=== PATIENT | female | born 1980 | race American Indian/Alaskan Native ===

== ENCOUNTER 2017-12-31 19:32 | Emergency (ER) | payer SELFPAY ==
[2017-12-31] MEDS ORDERED: XANAX PO ONE (22:15)
--- NOTE | 2017-12-31 22:30 | Emergency Department Report ---
HPI - General Chief Complaint: Psych Time Seen by Provider: 12/31/17 22:08 - HPI HPI: 37-year-old female presents to the emergency department with complaint of 1.5 weeks of some generalized weakness, fatigue, anxiety. Patient says that she will get some intermittent chest pains but does not currently have any. She denies any shortness of breath, nausea, vomiting or diaphoresis. Patient has a history of bipolar disorder and schizophrenia but is not on any medication because "I can't afford it." She does admit to some auditory and visual hallucinations but she denies any suicidal or homicidal ideations. No recent travel or sick contacts at home. She has not taken anything for her symptoms prior to presentation. ED Past Medical Hx - Past Medical History Previous Medical History?: Yes Hx Hypertension: Yes Hx Psychiatric Treatment: Yes (schizophrenia, bipolar) - Surgical History Past Surgical History?: No - Social History Smoking Status: Never Smoker Substance Use Type: None ED Review of Systems ROS: Stated complaint: ANXIETY/WEAKNESS Other details as noted in HPI Comment: All other systems reviewed and negative Constitutional: weakness, other (fatigue). denies: chills, fever Eyes: denies: eye pain, eye discharge, vision change ENT: denies: ear pain, throat pain Respiratory: denies: cough, shortness of breath, wheezing Cardiovascular: chest pain (intermittent but none currently). denies: edema Gastrointestinal: denies: abdominal pain, nausea, diarrhea Genitourinary: denies: urgency, dysuria, discharge Musculoskeletal: denies: back pain, joint swelling, arthralgia Skin: denies: rash, lesions Neurological: denies: headache, weakness, paresthesias Psychiatric: auditory hallucinations, visual hallucinations. denies: homicidal thoughts, suicidal thoughts Physical Exam - Physical Exam Vital Signs: Vital Signs 12/31/17 20:06 Temperature 99.4 F Pulse Rate 115 H Respiratory 18 Rate Blood Pressure 133/76 O2 Sat by Pulse 99 Oximetry Physical Exam: GENERAL: The patient is well-developed well-nourished. HENT: Normocephalic. Atraumatic. Patient has moist mucous membranes. EYES: Extraocular motions are intact. Pupils equal reactive to light bilaterally. NECK: Supple. Trachea is midline. CHEST/LUNGS: Clear to auscultation. There is no respiratory distress noted. HEART/CARDIOVASCULAR: Regular. There is mild tachycardia. There is no murmur. ABDOMEN: Abdomen is soft, nontender. Patient has normal bowel sounds. There is no abdominal distention. SKIN: Skin is warm and dry. NEURO: The patient is awake, alert, and oriented. The patient is cooperative. The patient has no focal neurologic deficits. The patient has normal speech. MUSCULOSKELETAL: There is no tenderness or deformity. There is no limitation range of motion. There is no evidence of acute injury. PSYCH: Patient is calm and appropriate. ED Course Vital Signs 12/31/17 20:06 Temperature 99.4 F Pulse Rate 115 H Respiratory 18 Rate Blood Pressure 133/76 O2 Sat by Pulse 99 Oximetry ED Medical Decision Making - Lab Data Result diagrams: 12/31/17 22:21 12/31/17 22:21 - EKG Data -: EKG Interpreted by Me EKG shows normal: sinus rhythm, axis, intervals, QRS complexes, ST-T waves Rate: normal - EKG Data When compared to previous EKG there are: previous EKG unavailable Interpretation: normal EKG - Radiology Data Radiology results: image reviewed interpreted by me: Chest x-ray does not show any acute process. There are no pleural effusions, obvious pneumonia and there is no pneumothorax. - Medical Decision Making Patient came in with a complaint of some fatigue, generalized weakness, intermittent chest pain that has since resolved and question questioning the need for medication for her history of bipolar disorder, schizoaffective and anxiety. Patient does have some slight tachycardia but otherwise vitals are stable including being afebrile. Labs were unremarkable including a negative troponin, normal thyroid function. Blood alcohol level was negative. She is positive on urine drug screen for benzodiazepines but I did give her a very low dose Xanax when she got here for suspected anxiety. EKG does not show any signs of ST elevation [place], ischemia or dysrhythmia. After the patient at the Xanax she was reevaluated and vitals improved and the patient appeared improved as well. She does not have any suicidal or homicidal ideations and she is otherwise calm and appropriate and does not appear to be a candidate to be made a 1013 and sent to an inpatient psychiatric facility. She was seen by the psych copy preparer, Rl, who agrees. She was given multiple outpatient referrals for psychiatric care. She was also given referrals for primary care and a contract associate manager. However she was encouraged to return to the emergency department with any return of her chest pain or with any acute distress. Portions of this chart were dictated using dictation software, and therefore there may be some dictation errors within this note. - Differential Diagnosis OH, anxiety, costochondritis, bipolar disorder Critical Care Time: No Critical care attestation.: If time is entered above; I have spent that time in minutes in the direct care of this critically ill patient, excluding procedure time. ED Disposition Clinical Impression: Anxiety, History of bipolar disorder, History of schizophrenia Disposition: TO HOME OR SELFCARE Is pt being admited?: No Condition: Stable Instructions: Chest Pain (ED), Bipolar Disorder (ED), Schizophrenia (ED), Anxiety (ED) Additional Instructions: Please follow up with one of the outpatient psychiatric referrals that you were given. Return to the emergency Department with any return of your chest pain, worsening of your symptoms, or any acute distress. I have given you a referral for some primary care clinics in the area. I have also given you a referral for a local contract associate manager, Dr. Patterson, to follow-up regarding your intermittent chest pains. Referrals: PRIMARY CAREMD [Primary Care Provider] - 3-5 Days VALORIE PATTERSON MD [Staff Physician] - 3-5 Days [facility] [Outside] - 3-5 Days [facility] [Outside] - 3-5 Days [facility] [Outside] - 3-5 Days Forms: Accompanied Note, Work/School Release Form(ED) Time of Disposition: 01:25
[2017-12-31 22:43] LABS: Basophils # (Auto) 0.1 K/mm3 (0.0-0.1); Basophils % (Auto) 0.5 % (0.0-1.8); Eosinophils % (Auto) 0.3 % (0.0-4.3); Hematocrit 36.2 % (30.3-42.9); Hemoglobin 12.3 gm/dl (10.1-14.3); Lymphocytes # (Auto) 2.5 K/mm3 (1.2-5.4); Lymphocytes % (Auto) 24.5 % (13.4-35.0); Mean Corpuscular HGB Conc 34 % (30-34); Mean Corpuscular Hemoglobin 28 pg (28-32); Mean Corpuscular Volume 81 fl (79-97); Monocytes # (Auto) 1.1 K/mm3 (0.0-0.8); Monocytes % (Auto) 10.8 % (0.0-7.3); Platelet Count 393 K/mm3 (140-440); Red Blood Count 4.46 M/mm3 (3.65-5.03)
[2017-12-31 22:56] LABS: BUN/Creatinine Ratio 14; Blood Urea Nitrogen 14 mg/dL (7-17); Calcium 9.6 mg/dL (8.4-10.2); Hemolysis Index 2
[2018-01-01 00:31] LABS: Amphetamine Screen,Urine PRESUMPTIVE NEGATIVE; Cannabinoid Screen,Urine PRESUMPTIVE NEGATIVE; Cocaine Screen,Urine PRESUMPTIVE NEGATIVE; Methadone Screen,Urine PRESUMPTIVE NEGATIVE; Opiate Screen,Urine PRESUMPTIVE NEGATIVE
[2018-01-01 00:32] LABS: Hyaline Casts,Urine 4 /LPF; Mucus,Urine 2+ /HPF
[2018-01-01 00:36] LABS: HCG Qualitative,Urine Negative (Negative)
[2018-01-01 00:49] LABS: Benzodiazepines Screen,Urine PRESUMPTIVE POSITIVE
[2018-01-01 01:17] LABS: Color,Urine Yellow (Yellow)
[2018-01-01 01:18] LABS: Bilirubin,Urine Negative (Negative)
[2018-01-01 01:19] LABS: Blood,Urine Negative (Negative); Urobilinogen,Urine < 2.0 mg/dL (<2.0)
--- NOTE | 2018-01-01 01:54 | XRay Report ---
FINAL REPORT EXAM: XR CHEST ROUTINE 2V HISTORY: Medical Clearance Psych TECHNIQUE: PA and lateral views of the chest were submitted. FINDINGS: The heart size and mediastinum appear normal. The lungs are clear. Pleural fluid is not seen. The skeletal structures are well-maintained. IMPRESSION: No active chest disease.
[2018-01-01 03:25] VITALS: BP 129/83
== END 2018-01-01 01:49 | disposition home or self-care (01) ==
LOC: ED 19:32
DX: F41.9 Anxiety disorder, unspecified (principal); F31.9 Bipolar disorder, unspecified; F20.9 Schizophrenia, unspecified; I10 Essential (primary) hypertension
CPT/HCPCS: 36415; 71046; 80048; 80307; 81001; 81025; 84443; 84484; 85025; 93005; 93010; 99284; G0480; 80320

== ENCOUNTER 2018-03-28 08:37 | Emergency (ER) | payer SELFPAY ==
[2018-03-28 09:37] LABS: Basophils % (Auto) 0.7 % (0.0-1.8); Eosinophils % (Auto) 0.3 % (0.0-4.3); Hemoglobin 11.3 gm/dl (10.1-14.3); Lymphocytes # (Auto) 1.5 K/mm3 (1.2-5.4); Lymphocytes % (Auto) 23.3 % (13.4-35.0); Mean Corpuscular HGB Conc 33 % (30-34); Mean Corpuscular Hemoglobin 27 pg (28-32); Mean Corpuscular Volume 81 fl (79-97); Monocytes # (Auto) 0.6 K/mm3 (0.0-0.8); Monocytes % (Auto) 8.8 % (0.0-7.3); Platelet Count 504 K/mm3 (140-440); Red Blood Count 4.17 M/mm3 (3.65-5.03); Red Cell Distribution Width 13.5 % (13.2-15.2)
[2018-03-28 09:51] LABS: Alanine Aminotransferase 9 units/L (7-56); Albumin 4.4 g/dL (3.9-5); BUN/Creatinine Ratio 14; Blood Urea Nitrogen 14 mg/dL (7-17); Calcium 9.7 mg/dL (8.4-10.2); Hemolysis Index 3
--- NOTE | 2018-03-28 15:26 | Emergency Department Report ---
ED Psych HPI - General Chief Complaint: Psych Stated Complaint: PSYCHOSIS Time Seen by Provider: 03/28/18 14:27 Source: patient Mode of arrival: Ambulatory - History of Present Illness Initial Comments: 38-year-old female with history of bipolar and schizophrenia since the emergency department for mental evaluation. She reports for the last 2 days she has been under lots of stress. Reports insomnia and auditory hallucinations for last 2 days. She states the voices are saying negative things to her about her looks and about her marriage. Patient denies suicidal or homicidal ideations. Patient states has been out of her psych meds since August of this year. Pt was on Klonopin and Raúl LEIGH Complaint: other (anxiety, insomina, auditory hallucinations) -: days(s) (2) Associated Psychiatric Symptoms: auditory hallucinations Quality: constant Improves With: none Worsens With: none Context: not taking psychiatric Associated Symptoms: insomnia Treatments Prior to Arrival: none - Related Data Previous Rx's Medication Instructions Recorded Last Taken Type Haloperidol [Haldol] 2 mg PO QHS #7 tablet 03/28/18 Unknown Rx clonazePAM [Klonopin] 0.5 mg PO BID PRN #7 tablet 03/28/18 Unknown Rx Allergies Allergy/AdvReac Type Severity Reaction Status Date / Time No Known Allergies Allergy Unverified 12/31/17 20:17 ED Review of Systems ROS: Stated complaint: PSYCHOSIS Other details as noted in HPI Comment: All other systems reviewed and negative Psychiatric: anxiety, auditory hallucinations, other (reports insomnia). denies : homicidal thoughts, suicidal thoughts ED Past Medical Hx - Past Medical History Hx Hypertension: Yes Hx Psychiatric Treatment: Yes (schizophrenia, bipolar) - Social History Smoking Status: Never Smoker Substance Use Type: None - Medications Home Medications: Home Medications Medication Instructions Recorded Confirmed Last Taken Type Haloperidol [Haldol] 2 mg PO QHS #7 tablet 03/28/18 Unknown Rx clonazePAM [Klonopin] 0.5 mg PO BID PRN #7 tablet 03/28/18 Unknown Rx ED Physical Exam - General Limitations: No Limitations General appearance: alert, in no apparent distress - Head Head exam: Present: atraumatic, normocephalic - Eye Eye exam: Present: normal appearance - ENT ENT exam: Present: mucous membranes moist - Neck Neck exam: Present: normal inspection - Respiratory Respiratory exam: Present: normal lung sounds bilaterally. Absent: respiratory distress - Cardiovascular Cardiovascular Exam: Present: regular rate, normal rhythm - GI/Abdominal GI/Abdominal exam: Present: soft. Absent: tenderness - Extremities Exam Extremities exam: Present: normal inspection - Neurological Exam Neurological exam: Present: alert, oriented X3 - Psychiatric Psychiatric exam: Present: normal affect, normal mood. Absent: agitated, anxious, homicidal ideation, suicidal ideation - Skin Skin exam: Present: warm, dry, intact, normal color ED Course Vital Signs 03/28/18 03/28/18 08:52 16:10 Temperature 98.8 F Pulse Rate 95 H 88 Respiratory 18 16 Rate Blood Pressure 120/76 Blood Pressure 154/80 [Left] O2 Sat by Pulse 99 99 Oximetry ED Medical Decision Making - Lab Data Result diagrams: 03/28/18 09:08 03/28/18 09:08 - Medical Decision Making 38-year-old female with history of bipolar and schizophrenia with report of anxiety, insomnia, auditory hallucinations. She denies suicidal or homicidal ideations. Pt seen by mental health brand planner. Does not meet inpatient criteria. She will be given outpatient resources for follow-up. Will give patient 1 week supply of her Haldol and Klonopin. - Differential Diagnosis bipolar, schizophrenia Critical care attestation.: If time is entered above; I have spent that time in minutes in the direct care of this critically ill patient, excluding procedure time. ED Disposition Clinical Impression: Schizophrenia Disposition: DC-01 TO HOME OR SELFCARE Is pt being admited?: No Condition: Stable Prescriptions: Haloperidol [Haldol] 2 mg PO QHS #7 tablet clonazePAM [Klonopin] 0.5 mg PO BID PRN #7 tablet PRN Reason: Anxiety Referrals: PRIMARY CARE, [Primary Care Provider] - 3-5 Days Time of Disposition: 15:34
[2018-03-28 16:11] VITALS: BP 154/80
[2018-03-28 19:10] LABS: HCG Qualitative,Urine Negative (Negative)
[2018-03-28 19:14] LABS: Bilirubin,Urine NEG (Negative); Blood,Urine LG (Negative); Color,Urine Yellow (Yellow); Mucus,Urine 1+ /HPF
[2018-03-28 19:15] LABS: RBC,Urine > 182.0 /HPF (0.0-6.0)
[2018-03-28 19:18] LABS: Amphetamine Screen,Urine PRESUMPTIVE NEGATIVE; Benzodiazepines Screen,Urine PRESUMPTIVE NEGATIVE; Cannabinoid Screen,Urine PRESUMPTIVE NEGATIVE; Cocaine Screen,Urine PRESUMPTIVE NEGATIVE; Methadone Screen,Urine PRESUMPTIVE NEGATIVE; Opiate Screen,Urine PRESUMPTIVE NEGATIVE
== END 2018-03-28 16:11 | disposition home or self-care (01) ==
LOC: ED 08:37
DX: F20.9 Schizophrenia, unspecified (principal); F31.9 Bipolar disorder, unspecified
CPT/HCPCS: 36415; 80053; 80307; 81001; 81025; 84443; 84703; 85025; 99283; G0480; 80320